=== PATIENT | male | born 1985 | race Caucasian/White ===

== ENCOUNTER 2019-04-23 05:10 | Emergency (ER) | payer SELFPAY ==
[~2019-04-23] VITALS: Ht 180.3 cm; Wt 107.7 kg
[2019-04-23 05:20] VITALS: BP 162/103
[2019-04-23] MEDS ORDERED: KETOROLAC 30 MG/1 ML ONE (05:51)
--- NOTE | 2019-04-23 05:54 | NUR ---
MEDICATED PER MAR, FAMILY AT BEDSIDE. NO OTHER NEEDS AT THIS TIME.
[2019-04-23] MEDS ORDERED: KETOROLAC 30 MG/1 ML IM ONE (06:00)
--- NOTE | 2019-04-23 06:50 | NUR ---
RECEIVED REPORT FROM HEIKE ADAMS. AWAITING DISPO
[2019-04-23] MEDS ORDERED: OXYcodone/APAP 5/325MG TABLET ONE (07:45)
--- NOTE | 2019-04-23 07:54 | NUR ---
left arm placed in sling after medicated as noted on mar for pain
[2019-04-23] MEDS ORDERED: OXYcodone/APAP 5/325MG TABLET PO ONE (08:00)
== END 2019-04-23 08:06 | disposition home or self-care (01) ==
LOC: ED 07:45
DX: S43.52XA Sprain of left acromioclavicular joint, initial encounter (principal); W00.0XXA Fall on same level due to ice and snow, initial encounter; Y93.23 Activity, snow (alpine) (downhill) skiing, snowboarding, sledding, tobogganing and snow tubing; Y92.89 Other specified places as the place of occurrence of the external cause; Y99.8 Other external cause status
CPT/HCPCS: 73030; 96372; 99283; J1885

== ENCOUNTER 2020-01-07 14:37 | Emergency (ER) | payer OTHER ==
[~2020-01-07] VITALS: Ht 177.8 cm; Wt 115.3 kg
--- NOTE | 2020-01-07 14:54 | NUR ---
carli. report received krish rn. pt here fo od. pt's aox4. resps even and unlabored. all monitors in place. call light within reach. ekg done at bedside. emd at bedside evaluating. sinus tachy rate 130's on dry cleaner at this time. pt stated " i had 6 shots today. i remember some, but not all."
[2020-01-07 15:04] LABS: BASOPHILS # (AUTO) 0.02 x10^3/uL (0-0.1); BASOPHILS % (AUTO) 0 % (0-1); EOSINOPHILS # (AUTO) 0.03 x10^3/uL (0-0.4); EOSINOPHILS % (AUTO) 0 % (1-7); LYMPHOCYTES # (AUTO) 1.39 x10^3/uL (1-3.4); LYMPHOCYTES % (AUTO) 21 % (22-44); MD NO; MEAN CORPUSCULAR HEMOGLOBIN 29.4 pg (27.5-34.5); MEAN CORPUSCULAR HGB CONC 33.1 g/dL (33.2-36.2); MEAN PLATELET VOLUME 7.5 fL (7.4-10.4); MONOCYTES # (AUTO) 0.75 x10^3/uL (0.2-0.8); MONOCYTES % (AUTO) 11 % (2-9); NEUTROPHILS # (AUTO) 4.46 x10^3/uL (1.8-6.8); NEUTROPHILS % (AUTO) 67 % (42-75); PLATELET COUNT 201 x10^3/uL (130-400); RED CELL DISTRIBUTION WIDTH 13.5 % (9.4-14.8)
[2020-01-07 15:12] LABS: ALANINE AMINOTRANSFERASE 116 U/L (12-78); ALBUMIN 3.8 g/dL (3.4-5.0); ANION GAP 12 mmol/L (5-15); CALCIUM 8.6 mg/dL (8.5-10.1); CHLORIDE 107 mmol/L (98-107); CREATININE 1.26 mg/dL (0.7-1.3)
[2020-01-07 15:15] LABS: ALKALINE PHOSPHATASE 78 U/L (45-117); BILIRUBIN,TOTAL 0.4 mg/dL (0.2-1.0); TOTAL PROTEIN 8.2 g/dL (6.4-8.2)
--- NOTE | 2020-01-07 15:16 | NUR ---
warm blanket given per request at this time.
--- NOTE | 2020-01-07 15:52 | NUR ---
pt resting in [facility]. pt's aox4. resps even and unlabored. all monitors in place. call light within reach.
--- NOTE | 2020-01-07 16:23 | NUR ---
PT SLEEPING IN [facility]. RESPS EVEN AND UNLABORED. ALL MONITORS IN PLACE. CALL LIGHT WITHIN REACH.
--- NOTE | 2020-01-07 17:07 | NUR ---
PT'S GF AT BEDSIDE AT THIS TIME. PT'S AOX4. RESPS EVEN AND UNLABORED. ALL MONITORS IN PLACE. CALL LIGHT WITHIN REACH.
--- NOTE | 2020-01-07 17:57 | NUR ---
pt resting in [facility]. pt's aox4. resps even and unlabored. all monitors in place. call light within reach.
--- NOTE | 2020-01-07 18:23 | NUR ---
pt resting in [facility]. pt's aox4. resps even and unlabored. all monitors in place. call light within reach. pt denies any needs or concerns at this time.
--- NOTE | 2020-01-07 19:00 | NUR ---
report given to héctor hicks.
[2020-01-07 19:39] VITALS: BP 132/89
--- NOTE | 2020-01-07 19:39 | NUR ---
PT REMAINS SITTING IN BED, CONNECTED TO CARDIAC, BP AND O2 MONITORS. NADN. PROVIDED WITH WATER.
--- NOTE | 2020-01-07 20:05 | NUR ---
CONFIRMED WITH MANAGER MAC AND CPS THAT PT WAS CLEARED FOR D/C.
== END 2020-01-07 20:07 | disposition home or self-care (01) ==
LOC: ED 15:08
DX: T40.1X1A Poisoning by heroin, accidental (unintentional), initial encounter (principal); T40.4X1A Poisoning by other synthetic narcotics, accidental (unintentional), initial encounter; R00.0 Tachycardia, unspecified; F17.200 Nicotine dependence, unspecified, uncomplicated; Y92.89 Other specified places as the place of occurrence of the external cause
CPT/HCPCS: 36415; 71045; 80053; 85025; 93005; 99285